=== PATIENT | female | born 1960 | race Caucasian/White ===

== ENCOUNTER 2017-04-09 12:44 | Day surgery (SDC) | payer OTHER ==
[~2017-04-09] VITALS: Ht 154.9 cm; Wt 85.4 kg
[2017-04-09] VITALS (12 sets, daily range): BP systolic 110–130; BP diastolic 64–87; PULSE 56–76; RESP 11–29; Ht 154.9 cm; Wt 85.4 kg
[~2017-04-09 12:44] MED LIST: ONDANSETRON 4 MG INJ ONE
[2017-04-09] MEDS ORDERED: SOD CHLORIDE 0.9% 1,000 ML IV ONE (14:30)
[2017-04-09] MEDS ORDERED: CEFAZOLIN 2 GM/50 ML (PMX) 50 ML IVPB ONE (14:30)
--- NOTE | 2017-04-09 16:05 | HPN ---
Date/Time of Note Date/Time of Note DATE: 04/09/17 TIME: 16:05 Interval H&P Admission Note Pt. seen H&P reviewed: No system changes YASH WEAVER MD Apr 09, 2017 16:05
[2017-04-09] MEDS ORDERED: BUPIVACAINE 0.25% (MPF) 30 ML INJ ONE (16:14)
[2017-04-09] MEDS ORDERED: MIDAZOLAM 1 MG/ML 2 ML INJ ONE (16:25)
--- NOTE | 2017-04-09 18:10 | OPR ---
Date/Time of Note Date/Time of Note DATE: 04/09/17 TIME: 18:05 Operative Report Procedure Date: Apr 09, 2017 Preoperative Diagnosis Cholelithiasis/chronic cholecystitis Postoperative Diagnosis 1. Chronic cholecystitis 2. Cholelithiasis 3. Porcelain gallbladder Operation Performed Laparoscopic cholecystectomy Surgeon see signature line Anesthesia Type: general Anesthesiologist: TYRONE MAGAÑA MD Estimated Blood Loss: minimal Transfusion Required: no Specimens Gallbladder Grafts/Implants: none Complications: no Pt Condition Post Procedure: stable Disposition: PACU Indications The patient is a 57-year-old female who presented to the office with right upper quadrant abdominal pain. The patient had clinical signs and symptoms of chronic cholecystitis and biliary colic which was confirmed via an ultrasound which showed the presence of gallstones. The patient was scheduled for laparoscopic cholecystectomy; possible open as definitive treatment to prevent further sequelae of gallstone disease which include but are not limited to: Gangrenous cholecystitis, choledocholithiasis, gallstone pancreatitis, ascending cholangitis, etc. All risks and benefits of the procedure including but not limited to: Wound infection, excessive bleeding, common bile duct injury , postoperative biliary leak, retained common bile duct stone, injury to intra- abdominal organs, conversion to open procedure, possible need for subsequent surgeries, etc. were all explained to the patient in full detail. She fully understood and wished to proceed with the procedure. Informed consent was therefore obtained. Operative\Procedure Findings Porcelain gallbladder Procedure Description The patient was brought to the operating room and placed supine on the operating table. Bilateral sequential compression devices were placed on both lower extremities. A dose of broad-spectrum perioperative intravenous antibiotics was given. After the induction of smooth general endotracheal anesthesia the patient's abdomen was prepped and draped in the standard surgical fashion. After performance of the surgical timeout a 5 mm incision was made in the inferior umbilicus and a Veress needle was used to access the intra- abdominal cavity atraumatically. Pneumoperitoneum was then obtained and the Veress needle was exchanged for a 5 mm trocar through which a 5 mm laparoscope was placed. Three further working ports were then placed a 12 mm port in the sub -xiphoid region and two 5 mm ports in the right upper quadrant. All port sites were anesthetized with 0.25% Marcaine prior to incision. A distended porcelain gallbladder was identified in the right upper quadrant. There were adhesions of the omentum to the anterior surface of the gallbladder. These were taken down using hook electrocautery. Attempts were made to grasp the gallbladder however, due to its porcelain nature this was very difficult. During the grasping process a puncture was made with drainage of thick, cheesy biliary fluid. This was suctioned out using a pool sucker. The gallbladder was then able to be grasped a little better. Using atraumatic graspers the gallbladder was grasped and retracted superiorly and laterally exposing the area of Hassan' s pouch. Dissection was begun in this area using a combination of blunt dissection and hook electrocautery. The cystic duct was identified as it entered straight into the neck of the gallbladder. It was dissected free of surrounding tissues and clipped proximally and distally x 3 and transected using EndoShears. Dissection was then continued posteriorly. The cystic artery was identified and dissected free of surrounding tissues. It too was clipped proximally and distally x 3 and transected using EndoShears. The gallbladder was then dissected off the liver bed using electrocautery. Gallbladder was cemented to the liver bed from fibrosis. Once completely free the gallbladder was placed in an Endo Catch bag and withdrawn through the subxiphoid port site which had to be enlarged to accommodate the porcelain nature and the extensive amount of stones within it. Once withdrawn it was passed off the field as specimen. Hemostasis was then inspected for and noted to be adequate. The abdomen was then irrigated with several liters of warm normal saline and the irrigant returned crystal clear. Pneumoperitoneum was then released and all trochars were withdrawn under direct vision. The fascia of the subxiphoid port site was reapproximated using 0 Vicryl sutures in running fashion. The subcutaneous tissues were irrigated with more warm normal saline and further local anesthesia was applied around the skin of the incision sites. The skin was then reapproximated using 4-0 Monocryl sutures in subcuticular fashion. The incisions were cleaned and Dermabond was applied to the incisions and the patient was awoken from anesthesia and transported to the recovery room in stable condition. All counts were correct at the end of the case x 2. YASH WEAVER MD Apr 09, 2017 18:10
[2017-04-09] MEDS ORDERED: LIDOCAINE 2% (SDV) 5 ML INJ ONE (18:12)
[2017-04-09] MEDS ORDERED: PROPOFOL 20 ML ONE (18:12)
[2017-04-09] MEDS ORDERED: ROCURONIUM 50 MG INJ ONE (18:12)
[2017-04-09] MEDS ORDERED: NEOSTIGMINE 3 MG/3 ML SYRINGE ONE (18:12)
[2017-04-09] MEDS ORDERED: GLYCOPYRROLATE 0.4 MG INJ ONE (18:12)
[2017-04-09] MEDS ORDERED: CEFAZOLIN 1 GM INJ ONE (18:15)
[2017-04-09] MEDS ORDERED: FENTAnyl 50 MCG/ML VIAL ONE ×2 (18:15→18:27)
[2017-04-09] MEDS ORDERED: HYDROmorphONE (0.2 MG/ML) 10ML SYG IV ONE (18:21)
[2017-04-09] MEDS ORDERED: MEPERIDINE 25 MG INJ ONE (18:29)
[2017-04-09] MEDS ORDERED: HYDROmorphONE (0.2 MG/ML) 10ML SYG IV PRN (18:30)
[2017-04-09] MEDS ORDERED: HYDROCODONE/APAP (5/325) TAB PO PRN ×2 (18:30)
[2017-04-09] MEDS ORDERED: IBUPROFEN 600 MG TAB PO PRN (18:30)
[2017-04-09] MEDS ORDERED: morphine 4 MG/ML VIAL IV PRN (18:30)
[2017-04-09] MEDS ORDERED: ONDANSETRON 4 MG INJ IV PRN ×2 (18:30)
[2017-04-09] MEDS ORDERED: DIPHENHYDRAMINE 50 MG INJ IV PRN (18:30)
[2017-04-09] MEDS ORDERED: KETOROLAC 30 MG INJ IV PRN (18:30)
[2017-04-09] MEDS ORDERED: MEPERIDINE 25 MG INJ IV PRN (18:30)
[2017-04-09] MEDS ORDERED: FENTAnyl 50 MCG/ML VIAL IV PRN (18:30)
[2017-04-09] MEDS: HYDROmorphONE (0.2 MG/ML) 10ML SYG IV PRN ×2 (18:37→18:56)
[2017-04-09] MEDS ORDERED: METOCLOPRAMIDE 10 MG INJ ONE (19:24)
[2017-04-09] MEDS ORDERED: METOCLOPRAMIDE 10 MG INJ IV PRN (19:30)
== END 2017-04-09 19:43 | disposition home or self-care (01) ==
LOC: SDS 12:44
PROVIDERS: ATTEND Surgery
DX: K80.10 Calculus of gallbladder with chronic cholecystitis without obstruction (principal); E11.9 Type 2 diabetes mellitus without complications; E78.5 Hyperlipidemia, unspecified; I10 Essential (primary) hypertension
CPT/HCPCS: 47562; 82962; 84703; 88304; J0690; J1170; J2175; J2250; J2405; J2710; J2765; J3010; Z7512; Z7610

== ENCOUNTER 2017-07-03 06:53 | Day surgery (SDC) | payer OTHER ==
[~2017-07-03] VITALS: Ht 162.6 cm; Wt 89.7 kg
[2017-07-03 08:14] VITALS: Ht 162.6 cm; Wt 89.7 kg
[2017-07-03] MEDS ORDERED: METFORMIN (08:18)
[2017-07-03] MEDS ORDERED: GLIPIZIDE (08:18)
[2017-07-03 08:28] VITALS: BP 134/69; PULSE 59; RESP 18
--- NOTE | 2017-07-03 09:59 | OPPN ---
Date/Time of Note Date/Time of Note DATE: 07/03/17 TIME: 09:58 Operative Report Preoperative Diagnosis Abdominal pain Chronic heartburn Screening Postoperative Diagnosis Gastroesophageal reflux disease Gastritis with erosions 2 small cecal polyps were removed Internal hemorrhoids Operation/Procedure Performed Esophagogastroduodenoscopy and biopsy Colonoscopy and biopsy Surgeon see signature line child nutrition assistant None Anesthesia: MAC Estimated blood loss: none Transfusion Required none Specimen Gastric mucosal biopsy Cecal polyps Grafts/Implants none Complications none SIRENA ASHFORD MD Jul 03, 2017 09:58
[2017-07-03 10:23] VITALS: BP 106/69; PULSE 58; RESP 20
--- NOTE | 2017-07-03 12:02 | GILP ---
DATE OF PROCEDURE: 07/03/2017 NAME OF PROCEDURES: 1. Esophagogastroduodenoscopy and biopsy. 2. Colonoscopy and biopsy. SURGEON: Sirnea Ashford MD PREOPERATIVE DIAGNOSES: 1. Abdominal pain. 2. Chronic heartburn. 3. Screening colonoscopy. POSTOPERATIVE DIAGNOSES: 1. Gastroesophageal reflux disease. 2. Gastritis with erosions. 3. Gastric mucosal biopsies were taken for Helicobacter pylori test. 4. Colonoscopy all the way to the cecum. 5. Two small cecal polyps were removed using the biopsy forceps. 6. Internal hemorrhoids. INDICATION FOR THE PROCEDURE: Ms. Poppy Montalvo is a 57-year-old female patient who had upper abd ominal pain and chronic heartburn, not responding to therapy. Patient also needed screening colonos copy. The procedures and possible complications are well explained to the patient. The patient understood and consented to the procedure. DESCRIPTION OF PROCEDURE: Under the influence of anesthesia, the gastroscope was carefully introduc ed into the esophagus and under direct vision, it was advanced to the stomach and through the pyloru s into the duodenal bulb and descending duodenum. FINDINGS: ESOPHAGUS: The patient had gastroesophageal reflux disease. STOMACH: She had gastritis with erosions. Gastric mucosal biopsies were taken for H. pylori test. DUODENUM: Normal. The colonoscope was carefully introduced in the rectum and under direct vision, it was advanced all the way to the cecum. FINDINGS: The patient had 2 small cecal polyps and they were removed using the biopsy forceps. She had internal hemorrhoids. She tolerated the procedures very well and there was no complication from the procedures. At the en d of the procedures, she was awake with stable vital signs and she was discharged home to the care o f her family. IMPRESSION: Please see postoperative diagnosis. PLAN: 1. Omeprazole 40 mg p.o. q.a.m. 2. Zantac 300 mg p.o. at bedtime. 3. Await histopathology reports. 4. Next screening colonoscopy in 10 years. Dictated By: SIRENA MIRANDA/KASHIF Conf#: [id number] DID#: [id number] CC: SIRENA ASHFORD MD;*EndCC*
== END 2017-07-03 11:03 | disposition home or self-care (01) ==
LOC: MERGE 06:53 → GIL 06:53
PROVIDERS: ATTEND Internal Medicine Gastroenterology
DX: Z12.11 Encounter for screening for malignant neoplasm of colon (principal); K21.9 Gastro-esophageal reflux disease without esophagitis; K29.70 Gastritis, unspecified, without bleeding; K64.8 Other hemorrhoids; D12.0 Benign neoplasm of cecum
CPT/HCPCS: 84703; 87081; 88305